=== PATIENT | female | born 1950 | race Caucasian/White ===

== ENCOUNTER 2018-12-24 08:06 | Emergency (ER) | payer SELFPAY ==
[~2018-12-24] VITALS: Ht 160 cm; Wt 53.1 kg
[2018-12-24 08:25] VITALS: BP 132/78
--- NOTE | 2018-12-24 08:29 | NUR ---
PT ACCOMPANIED BY SPOUSE. PT HAS CO OF ONGOING COLD FOR 1 WEEK SUCH COUCH, TROUBLE BREATHING,. PT STATES "MY DOCTOR PRESCRIBED ME ALBUTEROL, MUCINEX, PREDNISONE AND AFRIN" PT RESTING COMFORTABLE. VS STABLE AWAITING MD ORDER.
[2018-12-24] MEDS ORDERED: ALBUTEROL SULFATE 2.5 MG/3 ML ONE (09:00)
[2018-12-24] MEDS ORDERED: ALBUTEROL SULFATE 2.5 MG/3 ML NPPB ONE (09:30)
--- NOTE | 2018-12-24 10:19 | NUR ---
Throughput found a [facility] that has a nebulizer, pt d.c and verbalized d/c instructions
== END 2018-12-24 10:21 | disposition home or self-care (01) ==
LOC: ED 10:15
DX: J20.8 Acute bronchitis due to other specified organisms (principal); J45.909 Unspecified asthma, uncomplicated
CPT/HCPCS: 71046; 94640; 99283; J7613